=== PATIENT | male | born 1945 | race Caucasian/White ===

== ENCOUNTER 2025-02-08 07:40 | Day surgery (SDC) | payer OTHER, SELFPAY ==
[2025-02-08] VITALS (10 sets, daily range): BP systolic 134–163; BP diastolic 52–79; BMI 33.9
[2025-02-08 09:06] LABS: Glucose - Point of Care 146 mg/dl (70-99)
[2025-02-08] MEDS: NSS 304 ML IV (09:20)
--- NOTE | 2025-02-08 10:29 | ITS.CL.PN ---
[employer] Sales Representative - Procedure Note
Procedure
Procedure Note:
CARDIAC CATHETERIZATION REPORT
Date of Procedure: 02/08/2025
Referring: Dr. Ajay Guajardo MD
Indication: anginal chest pain, positive cardiac stress test
PROCEDURE(S)
1. left heart catheterization
2. coronary angiography
ACCESS: 6F right radial artery (closure: radial band)
CATHETERS
1. 6F JR4
2. 6F JL3.5
MODERATE SEDATION: 25 minutes of moderate sedation was utilized. An independent medical receptionist medical assistant was present to assist with and help manage the patient's level of consciousness and physiologic status.
HEMODYNAMIC DATA
LV 149/11 (EDP 19) mmHg
AO 152/69 (mean 101) mmHg
CORONARY ANGIOGRAPHY
Dominance: right
LM: large, normal
LAD: large vessel giving rise to a small D1, moderate caliber D2, and wrapping around the apex. There is a robust L-R collateral to an RV marginal branch and septal collaterals to the RPDA and RPL system.
LCx: moderate caliber vessel giving rise to a small OM1, moderate caliber OM2, small OM3, small OM4, and moderate caliber LPL branch. The proximal to mid LCx has diffuse calcific disease up to 50% ostially. The moderate caliber OM2 has a focal 70%
stenosis at what appears to be the distal edge of a prior stent. There is otherwise mild non-obstructive disease throughout.
RCA: Large caliber vessel with severe ostial disease and a mid-vessel [employer] CONTROL ASSOCIATE within prior stent. The distal branches are supplied via robust collaterals from the LAD.
CONCLUSIONS
1. coronary artery disease as described with RCA INVENTORY CONTROL ASSOCIATE explaining the observed stress test abnormality (inferior scar and apical ischemia) as well as diffuse moderate disease in the LCx.
2. mildly elevated LV filling pressure and no aortic stenosis on hemodynamic pullback
RECOMMENDATION: Symptoms have typical and atypical features with stress territory well explain by his INVENTORY CONTROL ASSOCIATE. The circumflex disease is not easily amenable to revascularization given its diffuse calcific nature, does not match the stress territory, and
is likely not causing him symptoms. Would continue optimal medical management for now with anti-anginals and aggressive lipid lowering to target LDL<55.
Copy to: Dr. Ajay Guajardo MD (wallet assembler); Marcelina Pickering NP (PCP)
Signed: Rosalion Zheng MD, PhD
[2025-02-08 10:52] LABS: Glucose - Point of Care 143 mg/dl (70-99)
[2025-02-08] MEDS: NSS 1000 IV (10:53)
== END 2025-02-08 13:15 | disposition home or self-care (01) ==
LOC: CATH 07:40
PROVIDERS: ATTENDING PHYSICIAN Student in an Organized Health Care Education/Training Program; FAMILY PHYSICIAN Nurse Practitioner Gerontology; OTHER PHYSICIAN Internal Medicine Cardiovascular Disease
DX: I25.119 Atherosclerotic heart disease of native coronary artery with unspecified angina pectoris (principal); I10 Essential (primary) hypertension; Z95.5 Presence of coronary angioplasty implant and graft; Z79.899 Other long term (current) drug therapy; Z79.01 Long term (current) use of anticoagulants; Z79.84 Long term (current) use of oral hypoglycemic drugs; I48.19 Other persistent atrial fibrillation
CPT/HCPCS: 99152; 99153; 82962; 93458; C1894; Q9967